=== PATIENT | male | born 1975 | race Caucasian/White ===

== ENCOUNTER 2017-11-19 09:01 | Day surgery (SDC) | payer OTHER ==
[~2017-11-19 09:01] MED LIST: CEFAZOLIN 2 GM/50 ML (PMX) 50 ML IVPB; DEXAMETHASONE 4 MG/ML 1 ML INJ; FENTAnyl 50 MCG/ML VIAL; KETOROLAC 30 MG INJ; LIDOCAINE 2% (SDV) 5 ML INJ; ONDANSETRON 4 MG INJ; PROPOFOL 20 ML; ROCURONIUM 50 MG INJ; SUCCINYLCHOLINE CHLORIDE 100 MG/5 ML SYG IV; SUGAMMADEX SODIUM 200 MG/2 ML VIAL IV
[2017-11-19] MEDS: traMADol 50 MG TAB PO (10:10)
[2017-11-19] MEDS: GABAPENTIN 300 MG CAP PO (10:10)
[2017-11-19] MEDS ORDERED: DIPHENHYDRAMINE 50 MG INJ IV (11:30)
[2017-11-19] MEDS ORDERED: hydrALAzine 20 MG INJ IV (11:30)
[2017-11-19] MEDS ORDERED: OXYCODONE/ACETAMINOPHEN (5/325) TAB PO (11:30)
[2017-11-19] MEDS ORDERED: METOCLOPRAMIDE 10 MG INJ IV (11:30)
[2017-11-19] MEDS ORDERED: MEPERIDINE 25 MG INJ IV (11:30)
[2017-11-19] MEDS ORDERED: LABETALOL HCL 20MG INJ IV (11:30)
[2017-11-19] MEDS ORDERED: HYDROmorphONE 1 MG/5 ML IV SYRINGE IV ×2 (11:30)
[2017-11-19] MEDS: BUPIVACAINE 0.5% (SDV) 30 ML, morphine SULFATE (PF) 8 MG, EPINEPHrine 0.3 MG, KETOROLAC... IRR (13:10)
[2017-11-19] MEDS: ONDANSETRON 4 MG INJ IV (15:11)
[2017-11-19] MEDS: OXYCODONE/ACETAMINOPHEN (5/325) TAB PO (16:04)
[2017-11-23] MEDS ORDERED: CEFAZOLIN 1 GM INJ (07:34)
== END 2017-11-19 16:22 | disposition home or self-care (01) ==
LOC: SUR 09:01 → SDS 09:01 → SUR 16:22
DX: M25.851 Other specified joint disorders, right hip (principal); M24.051 Loose body in right hip; I10 Essential (primary) hypertension; E66.9 Obesity, unspecified; Z68.41 Body mass index [BMI] 40.0-44.9, adult; E66.01 Morbid (severe) obesity due to excess calories
CPT/HCPCS: 29914; 73502; 73530